=== PATIENT | male | born 1965 | race Caucasian/White ===

== ENCOUNTER → 2022-08-19 | Outpatient (CLI) | payer OTHER ==
[2022-08-19 11:16] LABS: POTASSIUM 3.7 mmol/L (3.5-5.1)
[2022-08-19 11:17] LABS: CALCIUM 9.3 mg/dL (8.3-10.5)
== END ==
LOC: LAB 10:51
PROVIDERS: Internal Medicine Cardiovascular Disease
DX: I25.119 Atherosclerotic heart disease of native coronary artery with unspecified angina pectoris (principal); I10 Essential (primary) hypertension